=== PATIENT | female | born 2000 | race African-American/Black ===

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

== ENCOUNTER → 2019-03-09 | Emergency (ER) | payer MEDICAID ==
[~2019-03-09] VITALS: Ht 180.3 cm; Wt 63.5 kg
--- NOTE | 2019-03-09 10:16 | NUR ---
CALLED, NO ANSWER
--- NOTE | 2019-03-09 10:19 | NUR ---
CALLED, NO ANSWER
--- NOTE | 2019-03-09 10:37 | NUR ---
Patient awake alert non distress
[2019-03-09 11:15] VITALS: BP 110/67
--- NOTE | 2019-03-09 11:15 | NUR ---
Patient discharged to home in stable condition. Written and verbal after care instructions given. Patient verbalizes understanding of instruction.
== END | disposition home or self-care (01) ==
LOC: ER 10:12
DX: J02.9 Acute pharyngitis, unspecified (principal); G43.909 Migraine, unspecified, not intractable, without status migrainosus; F17.200 Nicotine dependence, unspecified, uncomplicated

== ENCOUNTER 2019-03-21 09:26 | Emergency (ER) | payer MEDICAID ==
[~2019-03-21] VITALS: Ht 180.3 cm; Wt 61.2 kg
[2019-03-21 09:38] VITALS: BP 107/72
--- NOTE | 2019-03-21 11:14 | NUR ---
Patient discharged to home in stable condition. Written and verbal after care instructions given. Patient verbalizes understanding of instruction.
== END 2019-03-21 11:14 | disposition home or self-care (01) ==
LOC: ER 09:26
DX: J02.9 Acute pharyngitis, unspecified (principal); G43.909 Migraine, unspecified, not intractable, without status migrainosus; F17.200 Nicotine dependence, unspecified, uncomplicated
CPT/HCPCS: 87070-TC

== ENCOUNTER 2020-09-03 14:17 | Emergency (ER) | payer MEDICAID ==
[~2020-09-03] VITALS: Ht 180.3 cm; Wt 63.0 kg
[2020-09-03 14:26] VITALS: BP 100/65
[2020-09-03] MEDS ORDERED: AMOX500C2 PO ×2 (14:41)
--- NOTE | 2020-09-03 14:56 | NUR ---
Patient discharged to home in stable condition. Written and verbal after care instructions given. Patient verbalizes understanding of instruction.
== END 2020-09-03 14:56 | disposition home or self-care (01) ==
LOC: ER 14:26
DX: J03.90 Acute tonsillitis, unspecified (principal); G43.909 Migraine, unspecified, not intractable, without status migrainosus; F17.200 Nicotine dependence, unspecified, uncomplicated

== ENCOUNTER 2020-12-02 06:41 | Emergency (ER) | payer MEDICAID ==
[~2020-12-02] VITALS: Ht 182.9 cm; Wt 63.5 kg
[~2020-12-02 06:41] MED LIST: AMOX500C2 PO
[2020-12-02] MEDS ORDERED: ONDANSETRON HCL/PF 4 MG/2 ML VIAL ONE (07:00)
[2020-12-02] MEDS ORDERED: ONDANSETRON HCL/PF 4 MG/2 ML VIAL IVP ONE (07:00)
[2020-12-02] MEDS ORDERED: MORPHINE SULFATE INJ 2 MG/ML DISP.SYRIN IV ONE (07:00)
[2020-12-02] MEDS ORDERED: MORPHINE SULFATE INJ 2 MG/ML DISP.SYRIN ONE (07:00)
[2020-12-02] MEDS ORDERED: IV NS 0.9% 1,000 ML BAG IV ONE (07:00)
--- NOTE | 2020-12-02 07:14 | NUR ---
patient came in to the er c/o sore throat and nausea vomiting x 2 days. On room air, breathing evenly and unlabored. Connected to the monitor and pulse ox. Kept comfortable will continue to monitor accordingly.
[2020-12-02 07:24] LABS: BASOPHILS % (AUTO) 0.3 % (0.0-2.0); EOSINOPHILS % (AUTO) 0.4 % (0.0-6.0); HEMATOCRIT 38 % (33-45); HEMOGLOBIN 12.5 g/dL (11.5-14.8); LYMPHOCYTES # (AUTO) 0.3 K/uL (0.8-4.8); LYMPHOCYTES % (AUTO) 5.5 % (20.0-44.0); MEAN CORPUSCULAR HGB CONC 33 g/dl (31.0-36.0); MEAN CORPUSCULAR VOLUME 86 fL (82-100); MONOCYTES # (AUTO) 0.5 K/uL (0.1-1.30); MONOCYTES % (AUTO) 8.3 % (2.0-12.0); NEUTROPHILS # (AUTO) 4.7 K/uL (1.8-8.9); NEUTROPHILS % (AUTO) 85.5 % (43.0-81.0); PLATELET COUNT (AUTO) 246 K/uL (150-450); RED BLOOD CELL COUNT(AUTO) 4.45 MIL/uL (4.0-5.2); WHITE BLOOD COUNT (AUTO) 5.5 K/uL (4.3-11.0)
--- NOTE | 2020-12-02 07:25 | NUR ---
COVID AG AND PCR COLLECTED AND SENT TO LAB
[2020-12-02 07:26] LABS: BILIRUBIN,URINE SMALL (NEGATIVE); COLOR,URINE YELLOW (YELLOW); LEUKOCYTE ESTERASE ,URINE NEGATIVE (NEGATIVE); NITRITE, URINE NEGATIVE (NEGATIVE); PH,URINE 7.5 (5.0-8.0); PROTEIN,URINE 30 mg/dl (NEGATIVE); UGLUCOSE NEGATIVE (NEGATIVE)
[2020-12-02 07:27] LABS: CALCIUM, SERUM 9.6 mg/dL (8.5-10.1); POTASSIUM 3.7 mmol/L (3.5-5.1)
[2020-12-02 07:29] LABS: BACTERIA,URINE None seen /HPF (None Seen); RBC,URINE NONE SEEN /HPF (0-2); SQUAMOUS EPITHELIAL CELL,UR Rare /HPF (None Seen); WBC,URINE NONE SEEN /HPF (0-3)
[2020-12-02 07:33] LABS: ALBUMIN 4.8 g/dL (3.4-5.0); BILIRUBIN,DIRECT 0.3 mg/dL (0.0-0.2); BILIRUBIN,TOTAL 1.3 mg/dL (0.2-1.0); TOTAL PROTEIN, SERUM 8.7 g/dL (6.4-8.2)
--- NOTE | 2020-12-02 08:11 | NUR ---
Lab called. Covid positive
[2020-12-02] MEDS ORDERED: ONDA4TAB11 PO (08:21)
[2020-12-02 08:36] VITALS: BP 126/71
--- NOTE | 2020-12-02 08:37 | NUR ---
Patient discharged to home in stable condition. Written and verbal after care instructions given. Patient verbalizes understanding of instruction.IV removed. Catheter intact and site benign. Pressure and 4x4 applied to site. No bleeding noted.
== END 2020-12-02 08:37 | disposition home or self-care (01) ==
LOC: ER 06:45
DX: U07.1 COVID-19 (principal); R51.9 Headache, unspecified; R11.2 Nausea with vomiting, unspecified; R29.0 Tetany; E83.42 Hypomagnesemia; R10.10 Upper abdominal pain, unspecified
CPT/HCPCS: 36415; 71045; 76705; 80048; 80076; 81001; 83690; 83735; 84703; 85025; 87426; 96361; 96374; 96375; 99285; C9803 ×2; J2270; J2405; U0003

== ENCOUNTER 2023-05-12 11:26 | Emergency (ER) | payer MEDICAID ==
[~2023-05-12] VITALS: Ht 180.3 cm; Wt 61.2 kg
[~2023-05-12 11:26] MED LIST changes: +ONDA4TAB11 PO
[2023-05-12 12:59] VITALS: BP 110/82; TEMP 98.2; O2SAT 100
== END 2023-05-12 12:59 | disposition home or self-care (01) ==
LOC: ER 11:28
DX: J02.9 Acute pharyngitis, unspecified (principal); G43.909 Migraine, unspecified, not intractable, without status migrainosus
CPT/HCPCS: 86403-TC